=== PATIENT | female | born 1940 | race Caucasian/White ===

== ENCOUNTER 2022-06-08 00:48 | Day surgery (SDC) | payer MEDICARE, SELFPAY ==
[2022-05-31 08:59] VITALS: BMI 36.8
[2022-06-08 09:17] VITALS: BP 122/87; PULSE 73; RESP 20; TEMP 36.4; O2SAT 97; BMI 35.6
[2022-06-08] MEDS: LACTATED RINGERS 1,000 ML 150 ML IV CONT (09:24)
--- NOTE | 2022-06-08 09:45 | WPDHPUPDATE1 ---
History and Physical Update Update Date/Time: 06/08/22 09:45 History and Physical has been reviewed, including an updated exam of the patient. There are NO changes in the patient's condition. Risks, benefits, and alternatives have been discussed and questions answered. Patient agrees to proceed with procedure.
--- NOTE | 2022-06-08 09:47 | WPDANESEPPF ---
Anes - Initial Pre Proc Eval Procedure: Operation Date: 06/08/22 10:30 Proposed Procedures p Colonoscopy - Facundo Peacock MD Date/Time: 06/08/22 09:47 Surgeon: Facundo Peacock MD Pre Op Diagnosis: diarrhea Patient Data Age: 81 Gender: F Height: 1.57 m Weight: 88.3 kg Last Vital Signs Temp 97.6 F 06/08/22 09:17 Pulse 73 06/08/22 09:17 Resp 20 06/08/22 09:17 BP 122/87 06/08/22 09:17 Pulse Ox 97 06/08/22 09:17 O2 Del Method Room Air 06/08/22 09:17 Allergies Allergy/AdvReac Type Severity Reaction Status Date / Time No Known Allergies Allergy Verified 06/08/22 09:16 Home Medications Medication Instructions Recorded Confirmed Type acetaminophen 650 mg 650 mg PO Q12H PRN Pain 10/31/19 05/31/22 History tablet,extended release (Tylenol 8 Hour) amlodipine 10 mg tablet 10 mg PO HS 10/31/19 05/31/22 History clopidogrel 75 mg tablet 75 mg PO DAILY 10/31/19 05/31/22 History coenzyme Q10 100 mg capsule (Co 100 mg PO HS 10/31/19 05/31/22 History Q-10) estradiol 0.5 mg tablet (Estrace) 0.5 mg PO DAILY 10/31/19 05/31/22 History furosemide 20 mg tablet (Lasix) 40 mg PO QAM 10/31/19 05/31/22 History levothyroxine 100 mcg capsule 100 mcg PO DAILY 10/31/19 05/31/22 History losartan 100 mg tablet 100 mg PO DAILY 10/31/19 05/31/22 History cholestyramine (with sugar) 4 gram 4 g PO TID #90 ea 04/07/22 05/31/22 Rx powder for susp in a packet (Questran) Caltrate 600 plus D 1 tab-cap PO DAILY 05/31/22 05/31/22 History aspirin 81 mg tablet 81 mg PO DAILY 05/31/22 05/31/22 History dicyclomine 10 mg capsule 10 mg PO QID PRN Abdominal 05/31/22 05/31/22 History Discomfort glucosamine 750 ld-[id number]-[id number] 2 tablet PO DAILY 05/31/22 05/31/22 History no1 644 mg-C 30 mg-sirena 1 mg tablet (Osteo Bi-Flex Triple Strength) metoprolol succinate 25 mg 25 mg PO DAILY 05/31/22 05/31/22 History tablet,extended release 24 hr nitroglycerin 0.4 mg sublingual 0.4 mg sublingual DIRECTED 05/31/22 05/31/22 History tablet rosuvastatin 40 mg tablet 40 mg PO DAILY 05/31/22 05/31/22 History spironolactone 25 mg tablet 12.5 mg PO DAILY 05/31/22 05/31/22 History Patient hx anesthesia problems: none Family hx anesthesia problems: none Results Review: All pre-operative results and documents have been reviewed as part of the pre-operative evaluation. [facility] Past Medical History Medical History Body mass index (BMI) of 40.1 to 44.9 in adult Coronary artery disease Heart disease Hypertension Osteoarthritis of right knee Osteoporosis Rectal prolapse Surgical History Surgical History H/O heart artery stent H/O heart surgery triple bypass H/O: hysterectomy History of cardiac cath Social History Social History Years smoked: 2 Smoking status: Former smoker Tobacco type: cigarettes Alcohol intake: never Substance use: never Substance use type: does not use Living arrangements: alone Occupation/Education: retired Gender identity (if verbalized by the patient): Female Spiritual care concerns: No Anes - Eval Final PreProcedure Day of Procedure 06/08/22 09:47 Patient weight: obese Heart: regular rate and rhythm Lungs: clear to auscultation Airway: Mallampati scale class III Neurological: alert and oriented Last oral intake: >/= 8 hours ASA classification: III Emergent: no Anesthetic plan: proceed Anesthesia type and monitoring: general GIVS and standard monitoring Results Review: All pre-operative results and documents have been reviewed as part of the pre-operative evaluation. Informed Consent: The patient's anesthetic plan and its attendant risks and benefits were discussed with the patient/family/POA. Questions were solicited and answers provi
[2022-06-08 10:04] VITALS: BP 123/56; PULSE 62; RESP 25; O2SAT 95
[2022-06-08 10:14] VITALS: BP 123/61; PULSE 60; RESP 19; O2SAT 97
[2022-06-08 10:24] VITALS: BP 137/61; PULSE 64; RESP 22; O2SAT 98
== END 2022-06-08 10:33 | disposition home or self-care (01) ==
PROVIDERS: PCP Internal Medicine; Visit Provider Internal Medicine Gastroenterology
PROC: 0DJD8ZZ Inspection of Lower Intestinal Tract, Via Natural or Artificial Opening Endoscopic (ICD-10-PCS; CPT 45378; principal; 2022-06-08 10:30)
DX: Z12.11 Encounter for screening for malignant neoplasm of colon (principal); K52.9 Noninfective gastroenteritis and colitis, unspecified; K57.30 Diverticulosis of large intestine without perforation or abscess without bleeding; K62.3 Rectal prolapse; K64.8 Other hemorrhoids; I25.10 Atherosclerotic heart disease of native coronary artery without angina pectoris; I11.9 Hypertensive heart disease without heart failure; M81.0 Age-related osteoporosis without current pathological fracture; Z95.1 Presence of aortocoronary bypass graft; Z95.5 Presence of coronary angioplasty implant and graft; Z87.891 Personal history of nicotine dependence; E66.9 Obesity, unspecified; Z68.35 Body mass index [BMI] 35.0-35.9, adult; Z79.02 Long term (current) use of antithrombotics/antiplatelets; Z79.82 Long term (current) use of aspirin
CPT/HCPCS: 45380; 88305; J2704; J7120